=== PATIENT | female | born 1990 | race Caucasian/White ===

== ENCOUNTER 2017-01-07 01:35 | Emergency (ER) | payer OTHER ==
[2017-01-07] MEDS ORDERED: Dexamethasone Sodium Phos 10 mg/mL PF Vial ONE (01:57)
[2017-01-07] MEDS ORDERED: Dexamethasone Sodium Phos 4 mg/mL Vial IM STA (01:58)
--- NOTE | 2017-01-07 01:59 | ED Physician Chart ---
Chief Complaint/HPI - Patient Information Date Seen:: 01/07/17 Time Seen:: 01:40 Chief Complaint:: ear pain History of Present Illness:: 26-year-old female with acute, worsening, constant, aching, 10 out of 10, nonradiating, right ear pain since 5 PM this evening. Has associated upper respiratory infection. Denies fevers, hearing loss, acute vision changes, headache, dysphagia, chest pain, nausea, vomiting. Allergies:: Allergies Allergy/AdvReac Type Severity Reaction Status Date / Time No Known Allergies Allergy Verified 01/07/17 01:43 Vitals:: Vital Signs - 8 hr 01/07/17 01:40 Temp 98.2 F HR 96 RR 20 BP 138/82 O2 Sat % 100 Historian:: Patient Review:: Nurse's Note Reviewed Review of Systems - Review of Systems Other: Complete system review otherwise unremarkable except as noted in history of present illness. Past Medical History - Past Medical History Past Medical History: Other (migraine headaches) Family History: None Social History: Non Smoker, No Alcohol, No Drug Use Surgical History: None Psychiatricy History: Depression, Other (anxiety) Medication: Reviewed Family Medical History - Family Member Mother History Unknown: Yes Living Status: Still Living Physical Exam - Physical Examination Other:: INITIAL VITAL SIGNS: Reviewed by me GENERAL: Alert and interactive. No acute distress HEAD: Head is normocephalic and atraumatic EYES: EOMI. PERRL. No scleral icterus. No conjunctival injection ENT: Right TM is erythematous and bulging. Posterior pharynx is erythematous. NECK: Supple. Bilateral cervical adenopathy. Full range of motion RESPIRATORY: No tachypnea. Clear breath sounds bilaterally. No wheezing, rales, or rhonchi CV: Regular rate and rhythm. No murmurs, rubs, or gallops ABDOMEN: Soft, non-distended, non-tender. No guarding. No rebound. No masses. EXTREMITIES: No deformity. No cyanosis. No edema. SKIN: Warm and dry. No obvious rashes. NEUROLOGIC: Alert and oriented. Face is symmetric. Speech is normal. Moves all extremities equally. Motor and sensory distally intact. ED Septic Shock - . Is Septic Shock (SBP<90, OR Lactate>4 mmol\L) present?: No - <6hrs of presentation: Vital Signs: Vital Signs - 8 hr 01/07/17 01:40 Temp 98.2 F HR 96 RR 20 BP 138/82 O2 Sat % 100 Reassessment (Disposition) - Reassessment Reassessment:: Patient has acute right ear pain due to otitis media. Has associated upper respiratory infection. We did give intramuscular Toradol, Decadron and by mouth amoxicillin here in the ER. Provided prescriptions for amoxicillin and ibuprofen. Follow up with PCP 1-2 days. Return to ER precautions given. Patient understands and agrees the plan. Reassessment Condition:: Improved - Diagnosis Diagnosis:: Acute right ear pain due to acute otitis media, right Blood pressure was noted to be elevated over 120/80. There were no signs of hypertension. Discussed the findings with the patient and recommended that the patient follow up with the primary care physician regarding the elevated blood pressure. - Aftercare/Follow up Instructions Medication Prescribed:: Amoxicillin Ibuprofen - Patient Disposition Discharge/Transfer:: Home Time:: 02:06 Condition at Disposition:: Improved ED Discharge Plan - Patient Disposition Admit/Discharge/Transfer: PT DISCHARGED HOME Condition at Disposition: Improved Instructions: Otitis Media, Adult, [id number]
== END 2017-01-07 02:30 | disposition home or self-care (01) ==
LOC: ER 01:35
DX: H66.91 Otitis media, unspecified, right ear (principal); G43.909 Migraine, unspecified, not intractable, without status migrainosus
CPT/HCPCS: 99284; 96372 ×2; J1885; Z7502; Z7610

== ENCOUNTER 2017-11-24 18:11 | Emergency (ER) | payer OTHER ==
--- NOTE | 2017-11-24 19:55 | ER Physician Documentation ---
DATE OF SERVICE: EMERGENCY ROOM VISIT AND TREATMENT This is a 27-year-old female patient who came into the Emergency Room with cough and cold for the past 1 month duration. It is almost getting better, but still she has cough and shortness of breath. Her children also had some cough and cold and they all better except for her she has this more cough, so she came over here. HISTORY OF PRESENT ILLNESS: Essentially the same symptoms there I am describing point. REVIEW OF SYSTEMS: EYES: No history of double vision, blurring, or blindness. CENTRAL NERVOUS SYSTEM: No history of TIA, strokes, encephalitis, or meningitis. PULMONARY: She has cough and shortness of breath. She has evidence of bronchitis present point. The patient has no history of pneumonia or tuberculosis or any lung cancers, etc. GASTROINTESTINAL LEE: The patient has no history of diarrhea, nausea, vomiting, peptic ulcer disease, or GERD. ENDOCRINE: No diabetes mellitus. No hypo or hyperthyroidism. GENITOURINARY: No burning, frequency, or dysuria pointed. BONES AND JOINTS: No cancer. No history of any osteoarthritis point. The patient's other all review of systems endocrine lee, bone and joint lee, and collagen tissue lee essentially are within normal limits. I told her that I will be giving her Levaquin tablet, which occasionally hurts the collagen vascular system is that is okay with her, she said it is okay, so I am giving her Levaquin 750 mg p.o. daily for 5 days. Robitussin-DM 10 mL four times a day for 5 days and hopefully with this, she should be able to get better. She can take some probiotic or some yogurt point. PHYSICAL EXAMINATION: GENERAL: Shows that the patient is awake, alert, oriented, and not in any acute distress. PULMONARY: Some cough, some shortness of breath, occasional crackles, and occasional rhonchi heard. There is no definite evidence of any bronchitis. HEART: Shows PMI is located in the fifth intercostal space midclavicular line. S1 and S2 are normal. Fourth heart sound is audible, soft, distant. otherwise negative. CENTRAL NERVOUS SYSTEM: CVA is normal. ABDOMEN: Soft. Liver and spleen not enlarged. No free fluid in the abdominal cavity. CLINICAL IMPRESSION: The patient has: 1. Acute bronchitis. 2. Acute upper respiratory tract infection. PLAN: The patient will be sent home on Levaquin 750 mg p.o. daily and Robitussin-DM 10 mL q.i.d. for 5 days point and the patient will go back to her own physician for further treatment point. The patient is given prescription. The nurse has been informed. So, hopefully, she should be doing better point. JOB# [id number]
== END 2017-11-24 18:55 | disposition home or self-care (01) ==
LOC: ER 18:11
DX: J20.9 Acute bronchitis, unspecified (principal); J06.9 Acute upper respiratory infection, unspecified
CPT/HCPCS: Z7502